=== PATIENT | male | born 1985 | race American Indian/Alaskan Native ===

== ENCOUNTER 2018-11-21 14:25 | Emergency (ER) | payer MEDICAID ==
[2018-11-21] MEDS ORDERED: XYLOCAINE 2% INFILTRATI ONE (18:31)
--- NOTE | 2018-11-21 18:35 | Emergency Department Report ---
ED Laceration HPI - HPI Chief Complaint: Wound/Laceration Stated Complaint: LACERATION THUMB Occurred When: Today Location: Upper Extremity (left 1st digit) Severity: severe Tetanus Status: Up to Date Laceration Symptoms: Yes Numbness, Yes Pain, No Foreign Body Sensation, No Weakness Other History: This is a 33-year-old male who presents with a laceration to the left palm since this afternoon. Patient states he was moving a stove when his thumb got caught by a metal portion of the stove. His last tetanus vaccine was 3 years ago. He reports bleeding and numbness. He wrapped left hand in a towel and came over for evaluation. He denies swelling, foreign body sensation, or weakness. ED Review of Systems ROS: Stated complaint: LACERATION THUMB Other details as noted in HPI Constitutional: denies: chills, fever Respiratory: denies: cough, shortness of breath, wheezing Cardiovascular: denies: chest pain, palpitations Gastrointestinal: denies: abdominal pain, nausea, diarrhea Skin: lesions (laceration of left thumb). denies: rash Neurological: denies: headache, weakness, paresthesias Psychiatric: denies: anxiety, depression ED Past Medical Hx - Past Medical History Previous Medical History?: No - Surgical History Past Surgical History?: No - Social History Smoking Status: Current Every Day Smoker Substance Use Type: None - Medications Home Medications: Home Medications Medication Instructions Recorded Confirmed Last Taken Type Clindamycin [Clindamycin CAP] 300 mg PO Q8H #21 cap 11/21/18 Unknown Rx Laceration Physical Exam - Exam General: Vital signs noted. No distress. Alert and acting appropriately. Wound Length (cm): 2 Laceration Location: Upper Extremity (left first phalanx) Full Body Front + Back: 1 - 2 cm irregular laceration into the dermis of left proximal first phalanx, normal capillary refill, normal sensation to touch, and normal 2 point discrimination, FROM Laceration Exam: Yes Normal Distal CMS, No Foreign Body, No Exposed Tendon, Vessel, or Nerve, No Tendon Injury ED Course Vital Signs 11/21/18 14:34 Temperature 98.7 F Pulse Rate 84 Respiratory 18 Rate Blood Pressure 155/96 O2 Sat by Pulse 100 Oximetry - Laceration /Wound Repair Left Proximal Palm Finger Wound Location: upper extremity (left first proximal phalanx) Wound Length (cm): 2 Wound's Depth, Shape: into muscle, irregular Wound Explored: no foreign body removed Irrigated w/ Saline (ccs): 10 Betadine Prep?: Yes Anesthesia: 1% Lidocaine Volume Anesthetic (ccs): 2 Wound Repaired With: sutures Suture Size/Type: 4:0 Number of Sutures: 4 Layer Closure?: No Sterile Dressing Applied?: Yes ED Medical Decision Making - Radiology Data Radiology results: report reviewed FINAL REPORT EXAM: XR FINGER(S) 2+V LT HISTORY: laceration left 1st phalanx TECHNIQUE: AP, lateral, and oblique views of the left thumb PRIORS: None. FINDINGS: There is no evidence for acute fracture or dislocation. Generalized soft tissue swelling is noted of the thumb. There is evidence for a skin laceration overlying the proximal phalanx. No radiopaque foreign bodies are seen. Bony mineralization is normal and joint spaces are maintained. There is remote healed deformity of the 2nd metacarpal neck. IMPRESSION: No acute bony abnormality noted. Soft tissue swelling of the thumb with laceration over the proximal phalanx. - Medical Decision Making This is a 33 y.o. male presents with left first digit laceration since this afternoon. Patient examined by me. Patient is non-toxic appearing and stable. X-ray of left hand obtained and dictated by radiologist and report reviewed by myself. No acute bony abnormality noted. Soft tissue swelling of the thumb with laceration over the proximal phalanx. The laceration was closed with sutures, review note. Discharged home for outpatient treatment with clindamycin. Discussed ER care plan with patient. Patient agreed with plan. F/U with PCP. Critical care attestation.: If time is entered above; I have spent that time in minutes in the direct care of this critically ill patient, excluding procedure time. ED Disposition Clinical Impression: Laceration of finger of left hand without damage to nail Qualifiers: Encounter type: initial encounter Finger: thumb Foreign body presence: without foreign body Qualified Code(s): S61.012A - Laceration without foreign body of left thumb without damage to nail, initial encounter Disposition: DC- TO HOME OR SELFCARE Is pt being admited?: No Does the pt Need Aspirin: No Condition: Stable Instructions: Suture Care (ED), Laceration (ED) Additional Instructions: Take antibiotics as prescribed for the full course. Keep wound dry and clean for 48 hours. Avoid putting to much tension on wound site. Prop arm up on pillows to decrease swelling. Follow up with Primary Care Provider in 2-3 days. Have sutures removed in 7 days by primary care provider or in ER. Return to ER if red, swollen, foul discharge, or fever. Prescriptions: Clindamycin [Clindamycin CAP] 300 mg PO Q8H #21 cap Referrals: [facility] [Outside] - 3-5 Days [facility] [Outside] - 3-5 Days [facility] [Outside] - 3-5 Days Time of Disposition: 20:55
[2018-11-21] MEDS ORDERED: ULTRAM PO ONE (18:36)
--- NOTE | 2018-11-21 20:41 | XRay Report ---
FINAL REPORT EXAM: XR FINGER(S) 2+V LT HISTORY: laceration left 1st phalanx TECHNIQUE: AP, lateral, and oblique views of the left thumb PRIORS: None. FINDINGS: There is no evidence for acute fracture or dislocation. Generalized soft tissue swelling is noted of the thumb. There is evidence for a skin laceration overlying the proximal phalanx. No radiopaque fore ign bodies are seen. Bony mineralization is normal and joint spaces are maintained. There is remote healed deformity of the 2nd metacarpal neck. IMPRESSION: No acute bony abnormality noted. Soft tissue swelling of the thumb with laceration over the proximal phalanx.
[2018-11-21 21:37] VITALS: BP 139/89
== END 2018-11-21 22:01 | disposition home or self-care (01) ==
LOC: ED 14:25
DX: S61.012A Laceration without foreign body of left thumb without damage to nail, initial encounter (principal); F17.200 Nicotine dependence, unspecified, uncomplicated; W22.8XXA Striking against or struck by other objects, initial encounter; Y93.89 Activity, other specified; Y92.89 Other specified places as the place of occurrence of the external cause; Y99.8 Other external cause status
CPT/HCPCS: 99283